=== PATIENT | male | born 1970 | race Caucasian/White ===

== ENCOUNTER 2022-02-06 08:41 | Outpatient (CLI) | payer OTHER | END 2022-02-06 08:42 | disposition home or self-care (01) | LOC: CSHHS 08:41 → CSHLAB 08:42 | PROVIDERS: ATTEND Orthopaedic Surgery | DX: Z01.818 Encounter for other preprocedural examination (principal); T84.84XA Pain due to internal orthopedic prosthetic devices, implants and grafts, initial encounter; M54.50 Low back pain, unspecified | CPT/HCPCS: 80048; 85027; 85610; 85730; 86850; 86900; 86901; 93005; 93010 ==

== ENCOUNTER 2022-02-06 09:00 | Inpatient (IN) | payer OTHER ==
[2022-02-06 09:58] LABS: Hemoglobin 16.6 g/dL (13.5-17.5); Mean Corpuscular HGB CONC 36.5 g/dL (32.0-36.0); Mean Corpuscular Hemoglobin 33.1 pg (27.0-33.0); Mean Corpuscular Volume 90.6 fl (81.2-95.1); Mean Platelet Volume 11.1 fl (7.4-10.4); Platelet Count 201 10x3/uL (150-450); RBC Distribution Width 11.9 % (11.5-14.5); Red Blood Cell (RBC) Count 5.02 10x6/uL (4.32-5.72); White Blood Cell (WBC) Count 7.9 10x3/uL (3.5-10.5)
[2022-02-06 10:29] LABS: INR-International Normal Ratio 0.9; PTT 24.7 sec (22.0-33.0); Prothrombin Time 9.8 sec (9.5-12.1)
[2022-02-06 10:33] LABS: Anion Gap 17 mmol/L (10-20); BUN (Urea Nitrogen) 12 mg/dL (8.4-25.7); Calc. Creatinine Clearance 0 mL/min (70-130); Calcium 9.4 mg/dL (7.8-10.44); Carbon Dioxide 20 mmol/L (22-29); Chloride 104 mmol/L (98-107); Estimated GFR 70; Glucose 100 mg/dL (70-105); Potassium 4.3 mmol/L (3.5-5.1); Sodium 137 mmol/L (136-145)
[2022-02-12] MEDS ORDERED: Bupivacaine 0.25% HCL 30 ML VIAL ONE (06:14)
[2022-02-12] MEDS ORDERED: EPINEPHrine 1 MG/ML AMP ONE (06:14)
[2022-02-12] MEDS ORDERED: CEFAZOLIN 2 GM VIAL ONE (06:51)
[2022-02-12] MEDS ORDERED: Midazolam HCl 2 mg/2 ml Vial ONE (06:57)
[2022-02-12] MEDS ORDERED: Famotidine/PF 20 mg/2ml Vial ONE (06:57)
[2022-02-12] MEDS ORDERED: Ketamine 50 MG/ML (10ML VIAL) ONE (07:10)
[2022-02-12] MEDS ORDERED: Phenylephrine 40 MG/NS 250 ML 250 ML ONE (07:10)
[2022-02-12] MEDS ORDERED: SUGAMMADEX SODIUM 200 MG/2 ML VIAL ONE (07:10)
[2022-02-12] MEDS ORDERED: Propofol 1,000 MG/100 ML VIAL IV ONE ×4 (07:11→11:20)
[2022-02-12] MEDS ORDERED: PROPOFOL 20 ML ONE ×3 (07:14→11:21)
[2022-02-12] MEDS ORDERED: Succinylcholine 200 MG/10 ml SYRINGE FS ONE (07:14)
[2022-02-12] MEDS ORDERED: Fentanyl 250 MCG/5 ML VIAL ONE ×2 (07:14→08:24)
[2022-02-12] MEDS ORDERED: PHENYLEPHRINE-NS 100 MCG/ML 10 ML SYRINGE ONE (07:14)
[2022-02-12 07:34] LABS: SARS-CoV-2 NAA Rapid Test Not Detected (NotDetected)
[2022-02-12] MEDS ORDERED: Dexamethasone 20 MG/5 ML VIAL ONE (07:36)
[2022-02-12] MEDS ORDERED: CEFAZOLIN 1 GM VIAL ONE (08:02)
[2022-02-12] MEDS ORDERED: Fentanyl 100 MCG/2 ML VIAL ONE (08:02)
[2022-02-12] MEDS ORDERED: HYDROmorphone 0.5 MG/0.5 ML SYRINGE ONE (08:39)
[2022-02-12] MEDS ORDERED: ePHEDrine Sulfate 50 MG/10 ML VIAL ONE (10:55)
[2022-02-12] MEDS ORDERED: Ondansetron PF 4 MG/2 ML Vial ONE (11:28)
[2022-02-12] MEDS ORDERED: Ketorolac Tromethamine 30 MG/ML VIAL ONE (12:13)
[2022-02-12] MEDS ORDERED: Lidocaine 2% PF 5 ML VIAL ONE (12:13)
[2022-02-12] MEDS ORDERED: Acetaminophen 325 MG TAB PO PRN (12:43)
[2022-02-12] MEDS ORDERED: Morphine 4 MG/ML VIAL SLOW IVP PRN (12:43)
[2022-02-12] MEDS: HYDROcodone/Acetaminophen 10/325 mg Tablet PO PRN ×2 (15:29→20:56)
[2022-02-12 15:39] VITALS: BMI 33.3
[2022-02-12] MEDS: CEFAZOLIN 2 GM in Sodium Chloride 0.9% 100 ML IVPB SCH (16:35)
[2022-02-12] MEDS: Aspirin 81 mg Enteric Coated Tablet PO SCH (20:54)
[2022-02-12] MEDS ORDERED: Pregabalin 75 MG CAP PO SCH (21:00)
[2022-02-12] MEDS ORDERED: Atorvastatin Calcium 10 MG TAB PO SCH (21:00)
[2022-02-12] MEDS ORDERED: Sertraline 100 MG TAB PO SCH (21:00)
[2022-02-12] MEDS ORDERED: Non-Formulary Medication 1 EACH (Bictegrav/Emtricit/Tenofov Ala [Biktarvy 50-200-25 Mg Tab PO SCH (21:00)
[2022-02-12] MEDS ORDERED: Finasteride 5 MG TAB PO SCH (21:00)
[2022-02-13] MEDS: CEFAZOLIN 2 GM in Sodium Chloride 0.9% 100 ML IVPB SCH ×2 (00:36→08:30)
[2022-02-13] MEDS: HYDROcodone/Acetaminophen 10/325 mg Tablet PO PRN ×2 (08:29→13:50)
[2022-02-13] MEDS: Aspirin 81 mg Enteric Coated Tablet PO SCH (08:29)
[2022-02-13 13:29] VITALS: BP 118/57; TEMP 97.8
[2022-02-15] MEDS ORDERED: TETANUS, DIPHTHERIA TOX,ADULT (TDVAX) 0.5 ML VIAL IM ONE (12:43)
== END 2022-02-13 14:10 | disposition home or self-care (01) | DRG 455 ==
LOC: CSHTELE 02-12 05:47 → EDSTATUS 02-12 09:00 → CSHTELE 02-12 14:57
PROVIDERS: ADMIT Orthopaedic Surgery; ATTEND Orthopaedic Surgery
PROC: 0SG0071 Fusion of Lumbar Vertebral Joint with Autologous Tissue Substitute, Posterior Approach, Posterior Column, Open Approach (ICD-10-PCS; principal; 2022-02-12)
PROC: 0QP004Z Removal of Internal Fixation Device from Lumbar Vertebra, Open Approach (ICD-10-PCS; 2022-02-12)
PROC: 0SG00AJ Fusion of Lumbar Vertebral Joint with Interbody Fusion Device, Posterior Approach, Anterior Column, Open Approach (ICD-10-PCS; 2022-02-12)
PROC: 0SG30AJ Fusion of Lumbosacral Joint with Interbody Fusion Device, Posterior Approach, Anterior Column, Open Approach (ICD-10-PCS; 2022-02-12)
PROC: 0SG3071 Fusion of Lumbosacral Joint with Autologous Tissue Substitute, Posterior Approach, Posterior Column, Open Approach (ICD-10-PCS; 2022-02-12)
PROC: 00NY0ZZ Release Lumbar Spinal Cord, Open Approach (ICD-10-PCS; 2022-02-12)
PROC: 4A11X4G Monitoring of Peripheral Nervous Electrical Activity, Intraoperative, External Approach (ICD-10-PCS; 2022-02-12)
DX: M51.16 Intervertebral disc disorders with radiculopathy, lumbar region (principal); Z20.822 Contact with and (suspected) exposure to COVID-19; M51.17 Intervertebral disc disorders with radiculopathy, lumbosacral region; M48.07 Spinal stenosis, lumbosacral region; M41.87 Other forms of scoliosis, lumbosacral region; F17.210 Nicotine dependence, cigarettes, uncomplicated; E78.5 Hyperlipidemia, unspecified
CPT/HCPCS: 72110; 80048; 85027; 85610; 85730; 86850; 86900; 86901; 94760; C1713; C1889; J0171; J0690; J1100; J1170; J1885; J2001; J2250; J2405; J2704; J3010; J3490; S0020; S0028; U0002

== ENCOUNTER 2022-03-27 09:51 | Outpatient (CLI) | payer OTHER | END 2022-03-27 09:52 | disposition home or self-care (01) | LOC: CSHRAD 09:51 | PROVIDERS: ATTEND Orthopaedic Surgery | DX: M54.50 Low back pain, unspecified (principal); Z98.890 Other specified postprocedural states | CPT/HCPCS: 72100 ==

== ENCOUNTER 2022-07-24 08:52 | Outpatient (CLI) | payer OTHER | END 2022-07-24 08:53 | disposition home or self-care (01) | LOC: CSHRAD 08:52 | PROVIDERS: ATTEND Orthopaedic Surgery | DX: M54.50 Low back pain, unspecified (principal); Z98.890 Other specified postprocedural states | CPT/HCPCS: 72100 ==

== ENCOUNTER 2022-09-04 10:58 | Day surgery (SDC) | payer OTHER ==
[2022-09-03 13:51] VITALS: BMI 33.5
== END 2022-09-04 13:10 | disposition home or self-care (01) ==
LOC: CSHSDC 10:58
PROVIDERS: ATTEND Internal Medicine Gastroenterology
PROC: 0DB58ZX Excision of Esophagus, Via Natural or Artificial Opening Endoscopic, Diagnostic (ICD-10-PCS; principal; 2022-09-04)
PROC: 0D753ZZ Dilation of Esophagus, Percutaneous Approach (ICD-10-PCS; principal; 2022-09-04)
DX: K31.7 Polyp of stomach and duodenum (principal); K21.9 Gastro-esophageal reflux disease without esophagitis; K22.2 Esophageal obstruction; F41.9 Anxiety disorder, unspecified; M54.50 Low back pain, unspecified; G89.29 Other chronic pain; Z79.899 Other long term (current) drug therapy
CPT/HCPCS: 88305

== ENCOUNTER 2023-02-20 09:21 | Outpatient (CLI) | payer OTHER | END 2023-02-20 09:22 | disposition home or self-care (01) | LOC: CSHRAD 09:21 | PROVIDERS: ATTEND Orthopaedic Surgery | DX: M54.50 Low back pain, unspecified (principal); Z98.1 Arthrodesis status | CPT/HCPCS: 72100 ==

== ENCOUNTER 2023-12-23 08:25 | Day surgery (SDC) | payer OTHER ==
[2023-12-23] MEDS ORDERED: Sodium Bicarbonate 2.5 MEQ/5 ML SDV ONE (08:39)
[2023-12-23 08:54] VITALS: BP 157/97; TEMP 97.6
== END 2023-12-23 10:52 | disposition home or self-care (01) ==
LOC: CSHRAD 08:25 → EDSTATUS 12-28 10:00
PROVIDERS: ATTEND Radiology Neuroradiology
PROC: B02BYZZ Computerized Tomography (CT Scan) of Spinal Cord using Other Contrast (ICD-10-PCS; principal; 2023-12-23)
DX: M96.1 Postlaminectomy syndrome, not elsewhere classified (principal); M54.16 Radiculopathy, lumbar region
CPT/HCPCS: 62284; 72132; 77003